=== PATIENT | female | born 1985 | race Caucasian/White ===

== ENCOUNTER 2020-07-02 12:03 | Emergency (ER) | payer OTHER, SELFPAY ==
[2020-07-02 12:20] VITALS: BP 127/54; PULSE 85; RESP 20; TEMP 36.8; O2SAT 100
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
== END 2020-07-02 12:47 | disposition home or self-care (01) ==
PROVIDERS: Emergency Provider Nurse Practitioner Family
DX: J01.10 Acute frontal sinusitis, unspecified (principal)
CPT/HCPCS: 99213; G0463